=== PATIENT | female | born 1945 | race Two or more races ===

== ENCOUNTER → 2017-11-09 | Outpatient (CLI) | END | disposition home or self-care (01) ==

== ENCOUNTER → 2018-03-01 | Outpatient (CLI) | END | disposition home or self-care (01) ==

== ENCOUNTER → 2018-10-03 | Outpatient (CLI) | payer MEDICARE, OTHER ==
--- NOTE | 2018-10-03 12:39 | CONS ---
Consult Date/Type/Reason Admit Date/Time Initial Consult Date Date/Time of Note DATE: 10/03/18 TIME: 12:35 Subjective 72-year-old female follows up today after last visit February 2018. She was previously seen for lumbar radiculopathy going down the right lower extremity with significant greater trochanteric bursitis and iliotibial band tendinitis on the right side. She was on an NSAID regiment by her PCP and that was helping. At last visit she was prescribed physical therapy. Patient states that therapy helped significantly. However over the last 2 months her symptoms have returned. She has significant numbness and tingling and radiating pain down fro m her buttock to her toes. She would like to continue physical therapy. She continues to take NSAIDs from her PCP. Denies any groin pain. Knee continues to feel well. Objective Exam General: Alert, oriented. Vital signs: Noted on the chart. Heart: Regular rate and rhythm. Lungs: No respiratory distress. No accessory muscle use. Musculoskeletal: Well developed obese female in no apparent distress. Gait demonstrates a moderate Trendelenburg with antalgic components and no short leg component. Standing, the pelvis is level and supine there is no true leg length discrepancy. There is tenderness over trochanteric bursa and IT band. Positive Obers Test Over her buttock as well. There is tenderness to palpation Sitting there is pelvic obliquity. Minimal to no pain at the extremes of motion of the affected hip. Skin was intact throughout both lower extremities. Sensation decreased to light touch throughout the foot up to the mid tibia. Neurovascular exam showed 5/5 strength in the quads, EHL/tibialis anterior/gastroc. Normal and symmetrical pulses were palpated in both the dorsalis pedis and posterior tibial arteries. There is no sign of venous stasis. Results/Medications Imaging The patient received a full set of films and personally reviewed by myself today in clinic including an AP pelvis and an AP and lateral of the affected hip. The hip is reduced. There is no significant loss of joint space. There is no osteophyte formation. There is no subchondral sclerosis. There are no subchondral cysts. There is no significant deformity of the the proximal femur, femoral neck, or acetabulum. The pelvis is in continuity. Lumbar spine partially evaluated on AP pelvis. Show significant curvature of the lumbar spine with degenerative changes. Bone quality radiographically: Fair Assessment/Plan Hospital Course (Demo Recall) This is a 72-year-old female presenting with recurrence of her sciatica, lumbar radiculopathy, right GT bursitis and IT band tendinitis. She had previous success with physical therapy. She has significant weakness in her abductors as she has significant Trendelenburg gait. At this time recommending that she continue taking the the diclofenac she has been prescribed by her PCP. I am recommending that she restart physical therapy for her degenerative disc disease as well for greater trochanteric bursitis. I also recommended that the patient get referred to a spine physician for pot ential epidural injections. Follow-up FELIPE DOUGLASS MD Oct 03, 2018 12:39
--- NOTE | 2018-10-04 04:35 | RADRPT ---
PROCEDURE: XR pelvis and right hip CLINICAL INDICATION: PAIN TECHNIQUE: 2 AP pelvic weightbearing and AP and frog lateral weightbearing views of the right hip w ere performed. COMPARISON: None. 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 No acute fractures or dislocations. No focal bony blastic or lytic lesions or erosions. The soft tissues are unremarkable. 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 RPTAT:AAJJ Physician Jana Date Time Electronically viewed and signed by Clemencia Umaña Physician on 10/04/2018 04:34 BM/
== END | disposition home or self-care (01) ==
LOC: HKI 10:40
PROVIDERS: ATTEND Orthopaedic Surgery Adult Reconstructive Orthopaedic Surgery
DX: M54.30 Sciatica, unspecified side (principal); M54.16 Radiculopathy, lumbar region; M77.9 Enthesopathy, unspecified
CPT/HCPCS: 73502; G0463